=== PATIENT | female | born 1970 | race Caucasian/White ===

== ENCOUNTER 2022-06-01 12:29 | Emergency (ER) | payer OTHER, SELFPAY ==
--- OUTSIDE RECORDS SUMMARY | 2022-06-01 12:35 | XMS REPORT | Continuity of Care Document ---
:1970 Author Organization [facility] t Address [address] [place] [address] Care Team Providers Name Role Phone Tarik Awad Primary Care Physician ANY DUFFY Attending Clinician Unavailable Any Duffy MD Attending Clinician Doctor Unassigned, Marcellus Attending Clinician Unavailable Only, Adc Test Attending Clinician Unavailable Denise Werner Attending Clinician ZEYNEP BARRAZA Attending Clinician Unavailable Zeynep Barraza DO Attending Clinician YOLI PACHECO Attending Clinician Unavailable Yoli Anderson Attending Clinician ANY DUFFY Admitting Clinician Unavailable Any Duffy MD Admitting Clinician YOLI PACHECO Admitting Clinician Unavailable Payers Payer Name Policy Type Policy Number Effective Date Expiration Date [facility] [id number] 2016 CHOICE MEDICAID 00:00:00 Problems Condition Condition Condition Status Onset Resolution Last Treating Co mments Source Name Details Category Date Date Treatment Clinician Date Biliary Biliary Disease Active Overview: Univ ers colic colic 2-03 Formattin ity of 00:00: g of this [place] 00 note Medical might be Branch different from the original. Added automatic ally from request for surgery [id number] Urge Urge Disease Active Univers incontinen incontinen 712 it y of ce ce 00:00: [place] 00 Medical Branch Obesity, Obesity, Disease Active Unive rs unspecifie unspecifie 712 it y of d d 00:00: [place] 00 Medical Branch Chronic Chronic Disease Active Univers bilateral bilateral 712 ity of low back low back 00:00: [place] pain pain 00 Medical without without Branch sciatica sciatica Pain Pain Disease Active Univers pelvic pelvic 7-05 ity of 00:00: [place] [facility] Hot Hot Disease Active Univers flashes flashes 7-05 ity of 00:00: [place] [facility] Pelvic Pelvic Disease Active Univers pressure pressure 7-05 it[place] of in female [place] Uterovagin Uterovagin Disease Active U adaners al al 7-05 ity of prolapse, prolapse, 00:[place] incomplete incomplete [place] d[place] Branch 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 7-05 it y of ity ity 00:00: [place] 00 Medical Branch Constipati Constipati Disease Active U tiffany on, on, 7-05 ity of unspecifie unspecifie [place] Medical constipati constipati Br anch on type on type Sore Sore Disease Active Univers throat throat 8-04 ity of 00:00: [place] [facility] Dysuria Dysuria Disease Active Univers 8-04 ity of 00:00: [place] [facility] Tonsilliti Tonsilliti Disease Active U adaners s with s with 8-04 ity of exudate exudate 00:00: [place] 00 Medical Branch Status Status Disease Active Univers post post 727 ity of tympanopla tympanopla 00:[place] 00 [place] [facility] Allergies, Adverse Reactions, Alerts Allergy Allergy Status Severity Reaction(s) Onset Inactive Treating Comm ents Source Name Type Date Date Clinician Penicill Propensi Active ins - ty to 6-21 CLASS adverse 00:00: reaction 00 to drug Penicill Propensi Active ins ty to 5-18 adverse 00:00: reaction 00 to drug Penicill Propensi Active Rash Univer s in G ty to 07-23 ity of adverse 00:00: [place] reaction 00 Medical s Branch PENICILL DRUG Active Rash Univers IN G INGREDI 07-23 ity of 00:00: [place] 00 Medical Branch Social History Social Habit Start Date Stop Date Quantity Comments Source Alcohol intake 2021-07-22 2021-07-22 0 /d University of 00:00:00 00:00:00 [facility] Tobacco use and 2021-05-31 2021-05-31 Never used Universit y of exposure 00:00:00 00:00:00 [facility] Tobacco Comment 2021-05-31 2021-05-31 Occasional Huka Univ ersity of 00:00:00 00:00:00 [facility] Sex [birth year] At [birth year] Universit y of 00:00:00 00:00:00 [facility] Smoking Status Start Date Stop Date Source Smoker, current status 2021-05-31 00:00:00 [facility] Medications Ordered Filled Start Stop Current Ordering Indication Dosage Frequency Signature Comments Components Source Medication Medication Date Date Medication? Clinician (SIG) Name Name Dose No Unknown 7-17 00:00: 00 cholecalcif No 1(50,00 gina 7-16 0 unit) (vitamin 00:00: D3) 1,250 00 mcg (50,000 unit) tablet 1 TAB EVERY No 4 8 HOURS 7-16 NEEDED FOR 00:00: NAUSEA 00 Dose 2021-0 No Unknown 7-16 00:00: 00 Dose 2021-0 No Unknown 7-16 00:00: 00 Dose 2021-0 No Unknown 7-16 00:00: 00 TAKE 1 2021-0 No 20 TABLET 7-14 EVERY 6 00:00: HOURS 00 NEEDED. Dose 2021-0 No Unknown 7-14 00:00: 00 1 TAB EVERY 0 No 4 8 HOURS 7-07 NEEDED FOR 00:00: NAUSEA 00 Dose 2021-0 No Unknown 6-22 00:00: 00 Dose 2021-0 No Unknown 6-22 00:00: 00 Dose 2021-0 No Unknown 6-21 00:00: 00 Dose 2021-0 No Unknown 6 00:00: 00 Dose 2022-0 No Unknown 6 00:00: 00 Dose 2022-0 No Unknown 6 00:00: 00 Dose 2022-0 No Unknown 6 00:00: 00 Dose 2022-0 No Unknown 6 00:00: 00 Dose 2022-0 No Unknown 6 00:00: 00 metFORMIN 2022-0 Yes 500mg Take 500 Uni vers 500 mg 2-10 mg by ity of tablet 08:16: mouth [place] 13 daily. Medical Branch metFORMIN 2022-0 Yes 500mg Take 500 Uni vers 500 mg 2-10 mg by ity of tablet 08:16: mouth [place] 13 daily. Medical Branch metFORMIN 2-0 Yes 500mg Take 500 Uni vers 500 mg 2-10 mg by ity of tablet 08:16: mouth [place] 13 daily. Medical Branch metFORMIN 2021-0 Yes 500mg Take 500 Uni vers 500 mg 2-10 mg by ity of tablet 08:16: mouth [place] 13 daily. Medical Branch ferrous 2-0 Yes 325mg Take 325 Unive rs sulfate 325 2-09 mg by ity of mg (65 mg 14:29: mouth [place] iron) 56 daily Medical tablet before a Branch meal. ferrous 2022-0 Yes 325mg Take 325 Unive rs sulfate 325 2-09 mg by ity of mg (65 mg 14:29: mouth [place] iron) 56 daily Medical tablet before a Branch meal. ferrous 202-0 Yes 325mg Take 325 Unive rs sulfate 325 2-09 mg by ity of mg (65 mg 14:29: mouth [place] iron) 56 daily Medical tablet before a Branch meal. ferrous 2022-0 Yes 325mg Take 325 Unive rs sulfate 325 2-09 mg by ity of mg (65 mg 14:29: mouth [place] iron) 56 daily Medical tablet before a Branch meal. ketorolac 2022-0 Yes [id number] 10mg Take 1 Un af[place] 10 mg 1-31 tablet by ity of tablet 00:00: mouth [place] 00 every 6 Medical (six) Branch hours as needed for Pain (scale 1-3). ketorolac 2022-0 Yes [id number] 10mg Take 1 Un [place] 10 mg 1-31 tablet by ity of tablet 00:00: mouth [place] 00 every 6 Medical (six) Branch hours as needed for Pain (scale 1-3). ketorolac 2022-0 Yes [id number] 10mg Take 1 Un [place] 10 mg 1-31 tablet by ity of tablet 00:00: mouth [place] 00 every 6 Medical (six) Branch hours as needed for Pain (scale 1-3). ketorolac 2022-0 Yes [id number] 10mg Take 1 Un [place] 10 mg 1-31 tablet by ity of tablet 00:00: mouth [place] 00 every 6 Medical (six) Branch hours as needed for Pain (scale 1-3). ondansetron 2022-0 Yes [id number] 4mg Take 1 Univers 4 mg 1-25 tablet by ity of disintegrat 00:00: mouth [place] ing tablet 00 every 8 Medica l (eight) Branch hours as needed for Nausea and Vomiting (N/V). dicyclomine 2022-0 Yes [id number] 20mg Take 1 Univers 20 mg 1-25 tablet by ity of tablet 00:00: mouth 4 [place] 00 (four) Medical times Branch daily as needed for Abdominal pain. ondansetron 2022-0 Yes [id number] 4mg Take 1 Univers 4 mg 1-25 tablet by ity of disintegrat 00:00: mouth [place] ing tablet 00 every 8 Medica l (eight) Branch hours as needed for Nausea and Vomiting (N/V). dicyclomine 2022-0 Yes [id number] 20mg Take 1 Univers 20 mg 1-25 tablet by ity of tablet 00:00: mouth 4 [place] 00 (four) Medical times Branch daily as needed for Abdominal pain. ondansetron 2022-0 Yes [id number] 4mg Take 1 Univers 4 mg 1-25 tablet by ity of disintegrat 00:00: mouth [place] ing tablet 00 every 8 Medica l (eight) Branch hours as needed for Nausea and Vomiting (N/V). dicyclomine 2022-0 Yes [id number] 20mg Take 1 Univers 20 mg 1-25 tablet by ity of tablet 00:00: mouth 4 [place] 00 (four) Medical times Branch daily as needed for Abdominal pain. ondansetron 2022-0 Yes [id number] 4mg Take 1 Univers 4 mg 1-25 tablet by ity of disintegrat 00:00: mouth [place] ing tablet 00 every 8 Medica l (eight) Branch hours as needed for Nausea and Vomiting (N/V). dicyclomine 2021-0 Yes [id number] 20mg Take 1 Univers 20 mg 1-25 tablet by ity of tablet 00:00: mouth 4 [place] 00 (four) Medical times Branch daily as needed for Abdominal pain. cyclobenzap 2021-0 No 1mg rine 10 mg 1-07 tablet 00:00: 00 cyclobenzap 1 No 1mg rine 10 mg 1-05 tablet 00:00: 00 Claritin 10 2020-04 No 1mg mg tablet 04-26 00:00: 00 fluticasone 2020-04 No 2mcg/ac propionate 1-03 tuation 50 00:00: mcg/actuati 00 on nasal spray,suspe nsion Tessalon 2020-04 No 1mg Perles 100 1-03 mg capsule 00:00: 00 Tessalon 2020-0 No 1mg Perles 100 7-12 mg capsule 00:00: 00 rosuvastati 2020-0 No 1mg n 5 mg 7-08 tablet 00:00: 00 metformin 2020-0 No 1mg 500 mg 7-08 tablet 00:00: 00 ibuprofen 2020-0 No 1mg 800 mg 7-08 tablet 00:00: 00 cyclobenzap 2020-0 No 1mg rine 10 mg 7-08 tablet 00:00: 00 gabapentin 2020-0 No 1mg 300 mg 7-08 capsule 00:00: 00 metformin 2020-0 No 1mg 500 mg 3-01 tablet 00:00: 00 atorvastati 2020-0 No 1mg n 40 mg 3-01 tablet 00:00: 00 ferrous 2020-0 No 1(65 mg sulfate 325 3-01 iron) mg (65 mg 00:00: iron) 00 tablet gabapentin 2020-0 No 1mg 300 mg 3-01 capsule 00:00: 00 metformin 2020-0 No 1mg 500 mg 1-13 tablet 00:00: 00 metformin 2019-1 No 1mg 500 mg 0-17 tablet 00:00: 00 Voltaren 1 2019-1 No 2% % topical 0-15 gel 00:00: 00 Voltaren 1 2019-1 No 1% % topical 0-15 gel 00:00: 00 atorvastati 2019-1 No 1mg n 40 mg 0-15 tablet 00:00: 00 gabapentin 2020-0 No 1mg 300 mg 3-03 capsule 00:00: 00 Tamiflu 75 2019-0 No 1mg mg capsule 2-09 00:00: 00 amoxicillin 2020-0 No 1mg 500 mg 1-27 tablet 00:00: 00 azithromyci 2020-0 No 1mg n 250 mg 1-27 tablet 00:00: 00 fluticasone 2019-1 No 2mcg/ac propionate 2-16 tuation 50 00:00: mcg/actuati 00 on nasal spray,suspe nsion ProAir HFA 2019-1 No 2mcg/ac 90 2-16 tuation mcg/actuati 00:00: on aerosol 00 inhaler oxybutynin 2019-1 No 1mg chloride ER 2-16 5 mg 00:00: tablet,exte 00 nded release 24 hr meloxicam 2019-1 No 1mg 15 mg 2-16 tablet 00:00: 00 atorvastati 2019-1 No 1mg n 40 mg 2-16 tablet 00:00: 00 gabapentin 2019-1 No 1mg 300 mg 2-16 capsule 00:00: 00 fluticasone 2019-1 No 2mcg/ac propionate 0-25 tuation 50 00:00: mcg/actuati 00 on nasal spray,suspe nsion ProAir HFA 2019-1 No 2mcg/ac 90 0-25 tuation mcg/actuati 00:00: on aerosol 00 inhaler prednisone 2019-1 No 2mg 20 mg 0-25 tablet 00:00: 00 cetirizine 2019-1 No 1mg 5 0-25 mg-pseudoep 00:00: hedrine ER 00 120 mg tablet,exte nded release,12h r azithromyci 2019-1 No 1mg n 250 mg 0-25 tablet 00:00: 00 benzonatate 2019-1 No 1mg 100 mg 0-25 capsule 00:00: 00 oxybutynin 2019-0 No 1mg chloride ER 8-12 5 mg 00:00: tablet,exte 00 nded release 24 hr ibuprofen 2019-0 No 1mg 600 mg 8-12 tablet 00:00: 00 gabapentin 2019-0 No 1mg 300 mg 8-12 capsule 00:00: 00 gabapentin 2019-0 No 1mg 300 mg 8-12 capsule 00:00: 00 solifenacin 2019-0 No 1mg 5 mg tablet 6-13 00:00: 00 atorvastati 2019-0 No 1mg n 40 mg 6-13 tablet 00:00: 00 solifenacin 2016- Yes [id number] 5mg Take 1 Univers (VESICARE) 1-03 tablet by ity of 5 mg tablet 00:00: mouth [place] 00 daily. Medical Branch solifenacin 2016-04 Yes [id number] 5mg Take 1 Univers (VESICARE) 1-03 tablet by ity of 5 mg tablet 00:00: mouth [place] 00 daily. Medical Branch solifenacin 2016-04 Yes [id number] 5mg Take 1 Univers (VESICARE) 1-03 tablet by ity of 5 mg tablet 00:00: mouth [place] 00 daily. Medical Branch solifenacin 2016-04 Yes [id number] 5mg Take 1 Univers (VESICARE) 1-03 tablet by ity of 5 mg tablet 00:00: mouth [place] 00 daily. Medical Branch fexofenadin Yes [id number] 180mg Take 1 Univers e (JORJE) 7-06 tablet by ity of 180 mg 00:00: mouth [place] tablet 00 daily. Medical Branch ciprofloxac Yes 4[drp] Place 4 U nivers in-dexameth 7-06 Drops in ity of asone 00:00: right ear [place] (CIPRODEX) 00 2 (two) Medica l 0.3-0.1 % times Branch otic drops daily. hydrocortis Yes Apply to Un afia one 1 % 7-06 affected ity of cream 00:00: area(s) [place] 00 daily. Medical Branch fexofenadin Yes [id number] 180mg Take 1 Univers e (JORJE) 7-06 tablet by ity of 180 mg 00:00: mouth [place] tablet 00 daily. Medical Branch ciprofloxac Yes 4[drp] Place 4 U nivers in-dexameth 7-06 Drops in ity of asone 00:00: right ear [place] (CIPRODEX) 00 2 (two) Medica l 0.3-0.1 % times Branch otic drops daily. hydrocortis 2017 Yes Apply to Un [place] one 1 % 7-06 affected ity of cream 00:00: area(s) [place] 00 daily. Medical Branch fexofenadin 2017-0 Yes [id number] 180mg Take 1 Univers e (JORJE) 7-06 tablet by ity of 180 mg 00:00: mouth [place] tablet 00 daily. Medical Branch ciprofloxac 2017-0 Yes 4[drp] Place 4 U nivers in-dexameth 7-06 Drops in ity of asone 00:00: right ear [place] (CIPRODEX) 00 2 (two) Medica l 0.3-0.1 % times Branch otic drops daily. hydrocortis 2017-0 Yes Apply to Un [place] one 1 % 7-06 affected ity of cream 00:00: area(s) [place] 00 daily. Medical Branch fexofenadin 2017- Yes [id number] 180mg Take 1 Univers e (JORJE) 7-06 tablet by ity of 180 mg 00:00: mouth [place] tablet 00 daily. Medical Branch ciprofloxac 2017-0 Yes 4[drp] Place 4 U nivers in-dexameth 7-06 Drops in ity of asone 00:00: right ear [place] (CIPRODEX) 00 2 (two) Medica l 0.3-0.1 % times Branch otic drops daily. hydrocortis 2017-0 Yes Apply to Un af[place] one 1 % 7-06 affected ity of cream 00:00: area(s) [place] 00 daily. Medical Branch ibuprofen 2017-0 Yes 800mg Take 1 Unive rs 800 mg 6-12 tablet by ity of tablet 00:00: mouth [place] 00 every 8 Medical (eight) Branch hours as needed for Pain (scale 4-6). ibuprofen 2017-0 Yes 800mg Take 1 Unive rs 800 mg 6-12 tablet by ity of tablet 00:00: mouth [place] 00 every 8 Medical (eight) Branch hours as needed for Pain (scale 4-6). ibuprofen 2017-0 Yes 800mg Take 1 Unive rs 800 mg 6-12 tablet by ity of tablet 00:00: mouth [place] 00 every 8 Medical (eight) Branch hours as needed for Pain (scale 4-6). ibuprofen 2017-0 Yes 800mg Take 1 Unive rs 800 mg 6-12 tablet by ity of tablet 00:00: mouth [place] 00 every 8 Medical (eight) Branch hours as needed for Pain (scale 4-6). simvastatin 2017-0 Yes Univer s 20 mg 5-31 ity of tablet 00:00: [place] 00 Medical Branch simvastatin 2017-0 Yes Univer s 20 mg 5-31 ity of tablet 00:00: [place] [facility] simvastatin 2017-0 Yes Univer s 20 mg 5-31 ity of tablet 00:00: [place] [facility] simvastatin 2017-0 Yes Univer s 20 mg 5-31 ity of tablet 00:00: [address] Branch azelastine 2015-04 Yes 2{spray Use 2 Uni vers (ASTELIN) 2-20 } Sprays in ity o f 137 mcg 00:00: each [place] (0.1 %) 00 nostril 2 Medical nasal spray (two) Branch times daily. Use in each nostril as directed azelastine 2015-04 Yes 2{spray Use 2 Uni vers (ASTELIN) 2-20 } Sprays in ity o f 137 mcg 00:00: each [place] (0.1 %) 00 nostril 2 Medical nasal spray (two) Branch times daily. Use in each nostril as directed azelastine 2015-04 Yes 2{spray Use 2 Uni vers (ASTELIN) 2-20 } Sprays in ity o f 137 mcg 00:00: each [place] (0.1 %) 00 nostril 2 Medical nasal spray (two) Branch times daily. Use in each nostril as directed azelastine 2015-04 Yes 2{spray Use 2 Uni vers (ASTELIN) 2-20 } Sprays in ity o f 137 mcg 00:00: each [place] (0.1 %) 00 nostril 2 Medical nasal spray (two) Branch times daily. Use in each nostril as directed fluticasone 2015-04 Yes [id number] 2{spray Use 2 Univers 50 1-03 } Sprays in ity of mcg/actuati 00:00: each [place] on nasal 00 nostril Medical spray daily. Branch fluticasone 2015-04 Yes [id number] 2{spray Use 2 Univers 50 1-03 } Sprays in ity of mcg/actuati 00:00: each [place] on nasal 00 nostril Medical spray daily. Branch fluticasone 2015-04 Yes [id number] 2{spray Use 2 Univers 50 1-03 } Sprays in ity of mcg/actuati 00:00: each [place] on nasal 00 nostril Medical spray daily. [place] fluticasone 2015-04 Yes [id number] 2{spray Use 2 [facility] 50 1-03 } Sprays in ity of mcg/actuati 00:00: each [place] on nasal 00 nostril Medical spray daily. [place] Diflucan No 1mg 150 mg 5-24 tablet 00:00: 00 clindamycin 0 No 1mg HCl 300 mg 5-23 capsule 00:00: 00 nystatin 0 No 1unit/g 100,000 5-18 rocco unit/gram 00:00: topical 00 powder oxybutynin 0 No 1mg chloride ER 5-18 5 mg 00:00: tablet,exte 00 nded release 24 hr Flagyl 500 No 1mg mg tablet 18 00:00: 00 Cipro 500 No 1mg mg tablet 518 00:00: 00 Immunizations Ordered Filled Immunization Date Status Comments [facility] e Immunization Name Name SARS-COV-2 COVID-19 2020-08-22 Completed Unive rsity of PFIZER VACCINE 00:00:00 [facility] SARS-COV-2 COVID-19 2020-08-22 Completed Unive rsity of PFIZER VACCINE 00:00:00 [facility] SARS-COV-2 COVID-19 2020-08-22 Completed Unive rsity of PFIZER VACCINE 00:00:00 [facility] SARS-COV-2 COVID-19 2020-08-22 Completed Unive rsity of PFIZER VACCINE 00:00:00 [facility] SARS-COV-2 COVID-19 2020-08-01 Completed Unive rsity of PFIZER VACCINE 00:00:00 [facility] SARS-COV-2 COVID-19 2020-08-01 Completed Unive rsity of PFIZER VACCINE 00:00:00 [facility] SARS-COV-2 COVID-19 2020-08-01 Completed Unive rsity of PFIZER VACCINE 00:00:00 [facility] SARS-COV-2 COVID-19 2020-08-01 Completed Unive rsity of PFIZER VACCINE 00:00:00 [facility] Vital Signs Vital Name Observation Time Observation Value Comments Source Systolic blood 2021-07-22 20:44:00 136 mm[Hg] Univer sity of pressure [facility] Diastolic blood 2021-07-22 20:44:00 81 mm[Hg] Unive rsity of pressure [facility] Heart rate 2021-07-22 20:44:00 84 /min Universi ty of [facility] Body temperature 2021-07-22 20:44:00 36.61 [place] Univ ersity of [facility] Respiratory rate 2021-07-22 20:44:00 18 /min [facility] Body height 2021-07-22 20:44:00 162.6 cm Universi ty of [facility] Body weight 2021-07-22 20:44:00 93.895 kg Universi ty [facility] BMI 2021-07-22 20:44:00 35.53 kg/m2 [facility] Oxygen saturation in 2021-07-22 20:44:00 99 /min [facility] blood by [facility] Pulse oximetry Branch BP Systolic 2021-11-04 10:25:00 134 mm[Hg] BP Diastolic 2021-11-04 10:25:00 83 mm[Hg] Weight Measured 2021-11-04 10:25:00 207.80 pounds Height Measured 2021-11-04 10:25:00 62.00 inches Body Temperature 2021-11-04 10:25:00 98.40 degrees Heart Rate 2021-11-04 10:25:00 78.00 /min Respiratory Rate 2021-11-04 10:25:00 BP Systolic 2021-05-12 17:40:00 140 mm[Hg] BP Diastolic 2021-05-12 17:40:00 80 mm[Hg] Weight Measured 2021-05-12 17:40:00 214.40 pounds Height Measured 2021-05-12 17:40:00 62.00 inches Body Temperature 2021-05-12 17:40:00 97.40 degrees Heart Rate 2021-05-12 17:40:00 83.00 /min Respiratory Rate 2021-05-12 17:40:00 16.00 /min BP Systolic 2021-05-12 17:04:00 134 mm[Hg] BP Diastolic 2021-05-12 17:04:00 80 mm[Hg] Weight Measured 2021-05-12 17:04:00 249.00 pounds Height Measured 2021-05-12 17:04:00 62.00 inches Body Temperature 2021-05-12 17:04:00 97.50 degrees Heart Rate 2021-05-12 17:04:00 70.00 /min Respiratory Rate 2021-05-12 17:04:00 BP Systolic 2021-02-08 17:34:00 146 mm[Hg] BP Diastolic 2021-02-08 17:34:00 84 mm[Hg] Weight Measured 2021-02-08 17:34:00 216.80 pounds Height Measured 2021-02-08 17:34:00 62.00 inches Body Temperature 2021-02-08 17:34:00 98.30 degrees Heart Rate 2021-02-08 17:34:00 83.00 /min Respiratory Rate 2021-02-08 17:34:00 17.00 /min BP Systolic 2020-10-29 16:06:00 170 mm[Hg] BP Diastolic 2020-10-29 16:06:00 81 mm[Hg] Weight Measured 2020-10-29 16:06:00 210.80 pounds Height Measured 2020-10-29 16:06:00 62.00 inches Body Temperature 2020-10-29 16:06:00 98.30 degrees Heart Rate 2020-10-29 16:06:00 77.00 /min Respiratory Rate 2020-10-29 16:06:00 21.00 /min BP Systolic 2020-06-22 09:57:00 155 mm[Hg] BP Diastolic 2020-06-22 09:57:00 87 mm[Hg] Weight Measured 2020-06-22 09:57:00 211.00 pounds Height Measured 2020-06-22 09:57:00 62.00 inches Body Temperature 2020-06-22 09:57:00 97.60 degrees Heart Rate 2020-06-22 09:57:00 75.00 /min Respiratory Rate 2020-06-22 09:57:00 16.00 /min BP Systolic 2020-02-06 15:36:00 148 mm[Hg] BP Diastolic 2020-02-06 15:36:00 85 mm[Hg] Weight Measured 2020-02-06 15:36:00 214.20 pounds Height Measured 2020-02-06 15:36:00 62.00 inches Body Temperature 2020-02-06 15:36:00 97.10 degrees Heart Rate 2020-02-06 15:36:00 82.00 /min Respiratory Rate 2020-02-06 15:36:00 18.00 /min BP Systolic 2019-05-31 15:34:00 129 mm[Hg] BP Diastolic 2019-05-31 15:34:00 73 mm[Hg] Weight Measured 2019-05-31 15:34:00 210.20 pounds Height Measured 2019-05-31 15:34:00 62.00 inches Body Temperature 2019-05-31 15:34:00 98.10 degrees Heart Rate 2019-05-31 15:34:00 73.00 /min Respiratory Rate 2019-05-31 15:34:00 15.00 /min BP Systolic 2019-05-20 12:10:00 128 mm[Hg] BP Diastolic 2019-05-20 12:10:00 74 mm[Hg] Weight Measured 2019-05-20 12:10:00 208.60 pounds Height Measured 2019-05-20 12:10:00 62.00 inches Body Temperature 2019-05-20 12:10:00 99.40 degrees Heart Rate 2019-05-20 12:10:00 86.00 /min Respiratory Rate 2019-05-20 12:10:00 BP Systolic 2019-04-08 14:57:00 147 mm[Hg] BP Diastolic 2019-04-08 14:57:00 82 mm[Hg] Weight Measured 2019-04-08 14:57:00 210.80 pounds Height Measured 2019-04-08 14:57:00 62.00 inches Body Temperature 2019-04-08 14:57:00 98.40 degrees Heart Rate 2019-04-08 14:57:00 77.00 /min Respiratory Rate 2019-04-08 14:57:00 Procedures Procedure Date / Time Performed Performing Clinician [facility] e PHYSICIAN ORDERS 2021-08-11 05:01:00 Doctor Unassigned, No [facility] Ekg 2019-05-31 00:00:00 Plan of Care Planned Activity Planned Date Details Comments Source Goal Plan of Care Note [code = 54299-0] Goal Plan of Care Note [code = 79523-3] Goal Plan of Care Note [code = 15317-0] Goal Plan of Care Note [code = 36879-2] Goal Plan of Care Note [code = 04093-8] Goal Plan of Care Note [code = 76832-8] Goal Plan of Care Note [code = 94137-2] Goal Plan of Care Note [code = 96302-7] Goal Plan of Care Note [code = 68247-4] Goal Plan of Care Note [code = 38419-0] Goal Plan of Care Note [code = 09848-0] Goal Plan of Care Note [code = 07506-7] Goal Plan of Care Note [code = 07789-8] Goal Plan of Care Note [code = 61102-5] Goal Plan of Care Note [code = 51853-5] Goal Plan of Care Note [code = 04864-2] Goal Plan of Care Note [code = 64217-1] Goal Plan of Care Note [code = 23734-9] Goal Plan of Care Note [code = 56867-2] Goal Plan of Care Note [code = 52621-4] Goal Plan of Care Note [code = 00461-2] Goal Plan of Care Note [code = 85127-2] Goal Plan of Care Note [code = 05279-5] Goal Plan of Care Note [code = 14525-9] Goal Plan of Care Note [code = 45600-5] Goal Plan of Care Note [code = 06740-4] Goal Plan of Care Note [code = 92383-8] Goal Plan of Care Note [code = 73839-7] Goal Plan of Care Note [code = 64236-0] Goal Plan of Care Note [code = 84014-2] Goal Plan of Care Note [code = 07855-9] Goal Plan of Care Note [code = 14010-5] Goal Plan of Care Note [code = 27833-1] Encounters Start End Encounter Admission Attending Care Care Encounter Source Date/Time Date/Time Type Type Clinicians Facility Department ID 2022-03-24 2022-03-24 Outpatient SIL SFA [id number] Vasiliy 13:24:47 13:24:47 12[address] José Miguel 2021-11-04 2021-11-04 Outpatient [id number] 00:00:00 00:00:00 Visit [id number] 2021-08-12 2021-08-12 [id number] Univers 15:00:00 15:00:00 ANY delacruz [facility] 2021-08-11 2021-08-11 Telephone [facility] [id number] Univers 00:00:00 00:00:00 Any GRAY [id number] i ty of [place] [id number] [place] PROF[place] [id number] Pr dical [address] 2021-08-11 2021-08-11 Orders Doctor YONI [id number] Univers 00:00:00 00:00:00 Only Unassigned, CASIE [id number] [facility] [id number] Jacky as [id number] [address] 2021-07-22 2021-07-22 [facility] [id number] Univers 15:45:00 16:35:05 ANY delacruz [facility] 2021-07-22 2021-07-22 Office [facility] [id number] Univers 15:45:00 16:35:05 Visit Any GRAY [id number] i ty [facility] [id number] [phone] Pr dical NAL [address] [place] [address] 2021-06-24 2021-06-24 [facility] [id number] Univers 11:15:00 11:39:42 ANY delacruz [facility] 2021-06-24 2021-06-24 [facility] [id number] Univers 11:15:00 11:39:42 Visit Any GRAY [id number] i [id number] [phone] Pr dical NAL [address] [facility] 2021-06-24 2021-06-24 [facility] [id number] Univers 11:15:00 11:39:42 ANY mikel [facility] 2021-06-03 2021-06-03 Outpatient R [facility] [id number] Univers 08:00:00 10:36:19 ANY [facility] 2021-06-03 2021-06-03 Office [facility] [id number] Univers 08:00:00 10:36:19 Visit Any GRAY [id number] i [id number] [phone] [address] 2021-06-02 2021-06-02 [facility] [place] [id number] Univers 08:27:00 14:29:00 ANY delacruz [facility] 2021-06-02 2021-06-02 [facility] [id number] Univers 08:27:00 14:29:00 Encounter Any MARINA 350.1.13.10 ity [facility] [id number] [phone] [facility] [address] 2021-06-02 2021-06-02 [facility] [place] [id number] Univers 08:27:00 14:29:00 ANY delacruz [facility] 2021-06-02 2021-06-02 Surgery [facility] [id number] Univers 10:00:00 12:35:00 Any MARINA [id number] i [id number] [phone] [facility] [address] 2021-06-01 2021-06-01 Laboratory Only, Adc Test [facility] 1.2.840. [id number] Univers 13:15:00 13:30:00 Only Any Duffy MAR[place] [id number] ity of [place] [id number] [phone] [address] 2021-06-01 2021-06-01 Outpatient R CLIVE [facility] [id number] Univers 13:15:00 13:15:00 ANY delacruz [facility] 2021-05-31 2021-05-31 Outpatient R CLIVE [facility] [id number] Univers 12:00:00 12:00:00 ANY delacruz [facility] 2021-05-27 2021-05-27 Outpatient R CLIVE [facility] [id number] Univers 15:00:00 15:46:06 ANY mikel [facility] 2021-05-27 2021-05-27 [facility] [id number] Univers 15:00:00 15:46:06 Visit Any GRAY 350.1.13.10 i ty [place] [phone] Pr dical NAL [address] [place] [address] 2021-05-27 2021-05-27 Prep For Ariella [facility] [id number] Univers 00:00:00 00:00:00 Surgery Denise Green MAR[place] [id number] it[id number] [phone] Pr dical NAL [address] [place] [address] 2021-05-24 2021-05-24 Emergency X MADI [facility] ERT [id number] Univers 07:29:00 09:00:00 ZEYNEP delacruz [facility] 2021-05-24 2021-05-24 [facility] [id number] Univers 07:29:00 09:00:00 Zeynep GRAY 350.1.13.10 [id number] [phone] [facility] [address] 2021-05-24 2021-05-24 Orders Doctor YONI [id number] Univers 00:00:00 00:00:00 Only Unassigned, CASIE 350.1.13.10 ity of [place] [facility] [id number] Jacky as [phone] [facility] [address] 2021-05-18 2021-05-18 Emergency X [facility], [facility] ERT [id number] Univers 14:31:00 17:35:00 YOLI ity [facility] 2021-05-18 2021-05-18 Emergency [facility] [id number] Univers 14:31:00 17:35:00 Yoli GRAY 350.1.13.10 i ty [facility] 4.2.7.2.686 [facility] [phone] [facility] [address] 2021-05-18 2021-05-18 Orders Doctor YONI [id number] Univers 00:00:00 00:00:00 Only Unassigned, CASIE 350.1.13.10 ity of [place] [facility] [id number] Jacky as [phone] [facility] [address] 2020-08-22 2020-08-22 Outpatient [facility] [id number] Univers 15:25:00 15:25:00 [facility] 2020-08-01 2020-08-01 Outpatient [facility] [id number] Univers 15:05:00 15:05:00 [facility] Results Test Description Test Time Test Comments Results Result Comments Source H. PYLORI (BREATH) 2022-01-08 11:54:17 Test Item Value Reference Range Interpretation Comme nts H. PYLORI (BREATH) (test code POSITIVE NEGATIVE A UNLESS OTHERWISE INDICATED, ALL = 55473) TESTING PERFORM ED ATCLINICAL PATHOLOGY LABOR [facility] [address] [place] [id number] SUPERVISOR PARTIAL DENTURE DEPARTMENT: TAY CARRILLO M.D. CLIA NUMBER [id number] CAP ACCREDITATION N O. [id number] CBC W/AUTO DIFF WITH [id number] 06:55:57 Test Item Value Reference Range Interpretation Comments WBC (test code = 7.0 K/UL 3.5-11.0 1001) RBC (test code = 4.65 M/UL 3.80-5.40 1002) HEMOGLOBIN (test 8.5 G/DL 11.5-15.5 L code = 1003) HEMATOCRIT (test 29.1 % 34.0-45.0 L code = 1004) MCV (test code = 62.6 fL 80.0-99.0 L 1005) MCH (test code = 18.3 PG 25.0-33.0 L 1006) MCHC (test code = 29.2 G/DL 31.0-36.0 L 1007) RDW (test code = 17.7 % 11.5-15.0 H 1038) NEUTROPHILS (test 57.6 % AUTOMATED code = 1008) DIFFERENTIAL CONFIRMED WITH MANUAL SLIDE REVIEW. LYMPHOCYTES (test 30.0 % code = 1010) MONOCYTES (test code 7.8 % = 1011) EOSINOPHILS (test 3.6 % code = 1012) BASOPHILS (test code 0.7 % = 1013) IMMATURE 0.3 % GRANULOCYTES (test code = 1036) NUCLEATED RBCS (test 0.0 /100 See_Comment [Autom ated message] code = 1065) WBC'S The system [employer] generated this result transmitted ref erence range: 0.0. The reference range was not used to int erpret this result as normal/abnormal . PLATELET COUNT (test 361 K/UL 130-400 code = 1015) ABSOLUTE NEUTROPHILS 4.04 K/UL 1.50-7.50 (test code = 1066) ABSOLUTE LYMPHOCYTES 2.10 K/UL 1.00-4.00 (test code = 1067) ABSOLUTE MONOCYTES 0.55 K/UL 0.20-1.00 (test code = 1068) ABSOLUTE EOSINOPHILS 0.25 K/UL 0.00-0.50 (test code = 1040) ABSOLUTE BASOPHILS 0.05 K/UL 0.00-0.20 (test code = 1069) ABS IMMATURE 0.02 K/UL 0.00-0.10 GRANULOCYTES (test code = 1020) ABS NUCLEATED RBCS 0.00 K/UL 0.00-0.11 (test code = 19893) COMMENTS (test code (NOTE) SLIGHT ANISOCYTOSIS = 1016) FEW ELLIPTOCYTE S MODERATE HYPOCHROMASIA M ARKED MICROCYTOSIS SL IGHT POLYCHROMASIA F EW TEAR DROP CELLS PLATELETS APPEA R NORMAL VITAMIN D, 25 [id number] 04:18:12 Test Item Value Reference Range Interpretation Comments VITAMIN D, 25 OH 15 NG/ML SEE BELOW L NOTE: 25-H YDROXYVITAMIN D (test code = 4958) ASSAY INC LUDES 25-HYDROXYVITAM IN D2 AND D3. METHODOLOGY IS CHEMILUMINESCEN T IMMUNOASSAY. INTERPRETIVE RA NGES PEDIATRIC (<17 YEARS) . . . . . . . . . . . NG/ML 20-100ADULT: IN SUFFICIENT . . . . . . . . . . . . . . NG/ML <20 SUBOP TIMAL . . . . . . . . . . . . . . . NG/ML 20-29 OPT IMAL . . . . . . . . . . . . . . . . . NG/ML 30-100 CBC W/AUTO DIFF WITH PLATELETS [ADDED]2021-11-06 00:00:00 Test Item Value Reference Range Interpretation Comments WBC (test code = 1001) 7.0 K/UL RBC (test code = 1002) 4.65 M/UL HEMOGLOBIN (test code = 1003) 8.5 G/DL HEMATOCRIT (test code = 1004) 29.1 % MCV (test code = 1005) 62.6 fL MCH (test code = 1006) 18.3 PG MCHC (test code = 1007) 29.2 G/DL RDW (test code = 1038) 17.7 % NEUTROPHILS (test code = 1008) 57.6 % LYMPHOCYTES (test code = 1010) 30.0 % MONOCYTES (test code = 1011) 7.8 % EOSINOPHILS (test code = 1012) 3.6 % BASOPHILS (test code = 1013) 0.7 % IMMATURE GRANULOCYTES (test 0.3 % code = 1036) NUCLEATED RBCS (test code = 0.0 /100WBC'S 1065) PLATELET COUNT (test code = 361 K/UL 1015) ABSOLUTE NEUTROPHILS (test code 4.04 K/UL = 1066) ABSOLUTE LYMPHOCYTES (test code 2.10 K/UL = 1067) ABSOLUTE MONOCYTES (test code = 0.55 K/UL 1068) ABSOLUTE EOSINOPHILS (test code 0.25 K/UL = 1040) ABSOLUTE BASOPHILS (test code = 0.05 K/UL 1069) ABS IMMATURE GRANULOCYTES (test 0.02 K/UL code = 1020) ABS NUCLEATED RBCS (test code = 0.00 K/UL 38723) COMMENTS (test code = 1016) (NOTE) CBC W/AUTO DIFF WITH PLATELETS [ADDED]2021-11-06 00:00:00 Test Item Value Reference Range Interpretation Comments WBC (test code = 1001) 7.0 K/UL RBC (test code = 1002) 4.65 M/UL HEMOGLOBIN (test code = 1003) 8.5 G/DL HEMATOCRIT (test code = 1004) 29.1 % MCV (test code = 1005) 62.6 fL MCH (test code = 1006) 18.3 PG MCHC (test code = 1007) 29.2 G/DL RDW (test code = 1038) 17.7 % NEUTROPHILS (test code = 1008) 57.6 % LYMPHOCYTES (test code = 1010) 30.0 % MONOCYTES (test code = 1011) 7.8 % EOSINOPHILS (test code = 1012) 3.6 % BASOPHILS (test code = 1013) 0.7 % IMMATURE GRANULOCYTES (test 0.3 % code = 1036) NUCLEATED RBCS (test code = 0.0 /100WBC'S 1065) PLATELET COUNT (test code = 361 K/UL 1015) ABSOLUTE NEUTROPHILS (test code 4.04 K/UL = 1066) ABSOLUTE LYMPHOCYTES (test code 2.10 K/UL = 1067) ABSOLUTE MONOCYTES (test code = 0.55 K/UL 1068) ABSOLUTE EOSINOPHILS (test code 0.25 K/UL = 1040) ABSOLUTE BASOPHILS (test code = 0.05 K/UL 1069) ABS IMMATURE GRANULOCYTES (test 0.02 K/UL code = 1020) ABS NUCLEATED RBCS (test code = 0.00 K/UL 18035) COMMENTS (test code = 1016) (NOTE) VITAMIN D, 25 OH [ADDED]2021-11-06 00:00:00 Test Item Value Reference Range Interpretation Comments VITAMIN D, 25 OH (test code = 4958) 15 NG/ML H. PYLORI (BREATH)2021-11-05 12:19:58 Test Item Value Reference Range Interpretation Comments H. PYLORI (BREATH) POSITIVE NEGATIVE A UNLESS O THERWISE (test code = 70651) INDICATE D, ALL TESTING PERFORMED [facility] [employer] [address] [facility] [address] [facility] DIRECTOR: TAY CARRILLO M.D. CLIA NUMBER [id number] CAP ACCREDITATION N O. [id number] LIPID [id number] 08:22:33 Test Item Value Reference Range Interpretation Comments CHOLESTEROL (test 242 MG/DL <200 H code = 2210) TRIGLYCERIDES (test 153 MG/DL <150 H code = 2232) HDL CHOLESTEROL (test 56 MG/DL >39 code = 2220) CALC LDL CHOL (test 158 MG/DL <100 H NOTE: C ALCULATED LDL code = 2237) IS BASED ON HALEY-BRAN METHOD WHICHINCLUDES ADJUSTABLE TRIGLYCERIDE:VL DL CHOLESTEROL RAT IO.THIS FACTOR VARIES B Y MEASURED TRIGLY CERIDE AND NON-HDLCHOL ESTEROL CONCENTRATIONS WITH INCREASED CALCU LATED LDL SEENIN HIGH ER TRIGLYCERIDE OR LOWER NON-HDL SPECIME NS. FOR MOREINFORMATION , SEE CLIENT ANNOUNCE MENT AT [email or web address] RISK RATIO LDL/HDL 2.82 RATIO <3.22 (test code = 2238) COMPREHENSIVE METABOLIC [id number] 08:22:33 Test Item Value Reference Range Interpretation Comments GLUCOSE (test code = 107 MG/DL 70-99 H 2216) BUN (test code = 13 MG/DL 6-20 2207) CREATININE (test 0.63 MG/DL 0.60-1.30 code = 2214) eGFR (2020 CKD-EPI) 109 >60 (test code = 47468) ML/MIN/1.73 CALC BUN/CREAT (test 21 RATIO 6-28 code = 2235) SODIUM (test code = 139 MEQ/L 571-752 3393) POTASSIUM (test code 4.7 MEQ/L 3.5-5.4 = 222) CHLORIDE (test code 106 MEQ/L 95-107 = 221) CARBON DIOXIDE (test 20 MEQ/L 19-31 code = 2206) CALCIUM (test code = 9.1 MG/DL 8.5-10.5 2208) PROTEIN, TOTAL (test 7.3 G/DL 6.1-8.3 code = 222) ALBUMIN (test code = 4.3 G/DL 3.5-5.2 2200) CALC GLOBULIN (test 3.0 G/DL 1.9-3.7 code = 2240) CALC A/G RATIO (test 1.4 RATIO 1.0-2.6 code = 2234) BILIRUBIN, TOTAL <0.2 MG/DL See_Comment [Automated message] (test code = 2207) The syste m which generated this result transmit max reference range : <=1.2. The refe rence range was not u sed to interpret th is result as normal/abnormal . ALKALINE PHOSPHATASE 80 U/L 40-125 (test code = 2204) AST (test code = 13 U/L 9-40 2217) ALT (test code = 15 U/L 5-40 2218) VITAMIN [id number] 07:09:12 Test Item Value Reference Range Interpretation Comments VITAMIN B-12 (test code = 2840) 283 PG/ML 200-950 H. PYLORI (BREATH) [ADDED]2021-11-05 00:00:00 Test Item Value Reference Range Interpretation Comments H. PYLORI (BREATH) (test code = POSITIVE 94679) LIPID PANEL [ADDED]2021-11-05 00:00:00 Test Item Value Reference Range Interpretation Comments CHOLESTEROL (test code = 2210) 242 MG/DL TRIGLYCERIDES (test code = 2232) 153 MG/DL HDL CHOLESTEROL (test code = 2220) 56 MG/DL CALC LDL CHOL (test code = 2237) 158 MG/DL RISK RATIO LDL/HDL (test code = 2.82 RATIO 2238) COMPREHENSIVE METABOLIC PANEL [ADDED]2021-11-05 00:00:00 Test Item Value Reference Range Interpretation Comments GLUCOSE (test code = 2217) 107 MG/DL BUN (test code = 2208) 13 MG/DL CREATININE (test code = 2214) 0.63 MG/DL eGFR (2020 CKD-EPI) (test 109 ML/MIN/1.73 code = 98685) CALC BUN/CREAT (test code = 21 RATIO 2235) SODIUM (test code = 2231) 139 MEQ/L POTASSIUM (test code = 2228) 4.7 MEQ/L CHLORIDE (test code = 2215) 106 MEQ/L CARBON DIOXIDE (test code = 20 MEQ/L 2205) CALCIUM (test code = 2209) 9.1 MG/DL PROTEIN, TOTAL (test code = 7.3 G/DL 2228) ALBUMIN (test code = 2201) 4.3 G/DL CALC GLOBULIN (test code = 3.0 G/DL 0) CALC A/G RATIO (test code = 1.4 RATIO 2233) BILIRUBIN, TOTAL (test code = <0.2 MG/DL 2206) ALKALINE PHOSPHATASE (test 80 U/L code = 2204) AST (test code = 2218) 13 U/L ALT (test code = 2219) 15 U/L VITAMIN B-12 [ADDED]2021-11-05 00:00:00 Test Item Value Reference Range Interpretation Comments VITAMIN B-12 (test code = 2840) 283 PG/ML VITAMIN B-12 [ADDED]2021-11-05 00:00:00 Test Item Value Reference Range Interpretation Comments VITAMIN B-12 (test code = 2840) 283 PG/ML SARS-CoV-2 (COVID-19) by RT-PCR (HIGH RISK)2020-03-27 00:00:00 Test Item Value Reference Range Interpretation Comments SARS-CoV-2 INTERPRETATION NEGATIVE (test code = 65539) SOURCE (test code = 33869) NASOPHARYNGEAL [id number] 00:00:00 Test Item Value Reference Range Interpretation Comments TSH, THIRD GENERATION (test code 3.110 UIU/ML = 2821) [id number] 00:00:00 Test Item Value Reference Range Interpretation Comments TSH, THIRD GENERATION (test code 3.110 UIU/ML = 2821) CBC W/AUTO [id number] 00:00:00 Test Item Value Reference Range Interpretation Comments WBC (test code = 1001) 7.0 K/UL RBC (test code = 1002) 4.71 M/UL HEMOGLOBIN (test code = 1003) 12.6 G/DL HEMATOCRIT (test code = 1004) 37.2 % MCV (test code = 1005) 79.0 fL MCH (test code = 1006) 26.8 PG MCHC (test code = 1007) 33.9 G/DL RDW (test code = 1038) 13.2 % NEUTROPHILS (test code = 1008) 52.7 % LYMPHOCYTES (test code = 1010) 37.4 % MONOCYTES (test code = 1011) 6.1 % EOSINOPHILS (test code = 1012) 3.1 % BASOPHILS (test code = 1013) 0.7 % PLATELET COUNT (test code = 1015) 320 K/UL CBC W/AUTO [id number] 00:00:00 Test Item Value Reference Range Interpretation Comments WBC (test code = 1001) 7.0 K/UL RBC (test code = 1002) 4.71 M/UL HEMOGLOBIN (test code = 1003) 12.6 G/DL HEMATOCRIT (test code = 1004) 37.2 % MCV (test code = 1005) 79.0 fL MCH (test code = 1006) 26.8 PG MCHC (test code = 1007) 33.9 G/DL RDW (test code = 1038) 13.2 % NEUTROPHILS (test code = 1008) 52.7 % LYMPHOCYTES (test code = 1010) 37.4 % MONOCYTES (test code = 1011) 6.1 % EOSINOPHILS (test code = 1012) 3.1 % BASOPHILS (test code = 1013) 0.7 % PLATELET COUNT (test code = 1015) 320 K/UL HEMOGLOBIN [id number] 00:00:00 Test Item Value Reference Range Interpretation Comments HEMOGLOBIN A1c (test code = 85285) 6.1 % HEMOGLOBIN [id number] 00:00:00 Test Item Value Reference Range Interpretation Comments HEMOGLOBIN A1c (test code = 81597) 6.1 % LIPID [id number] 00:00:00 Test Item Value Reference Range Interpretation Comments CHOLESTEROL (test code = 2210) 344 MG/DL TRIGLYCERIDES (test code = 2232) 361 MG/DL HDL CHOLESTEROL (test code = 2220) 55 MG/DL CALC LDL CHOL (test code = 2237) 228 MG/DL RISK RATIO LDL/HDL (test code = 4.15 RATIO 2238) COMPREHENSIVE METABOLIC [id number] 00:00:00 Test Item Value Reference Range Interpretation Comments GLUCOSE (test code = 2217) 82 MG/DL BUN (test code = 2208) 9 MG/DL CREATININE (test code = 2214) 0.57 MG/DL eGFR AMER. (test code 128 ML/MIN/1.73 = 17010) eGFR NON- AMER. (test 110 ML/MIN/1.73 code = 94902) CALC BUN/CREAT (test code = 16 RATIO 2235) SODIUM (test code = 2231) 140 MEQ/L POTASSIUM (test code = 2228) 4.1 MEQ/L CHLORIDE (test code = 2215) 103 MEQ/L CARBON DIOXIDE (test code = 22 MEQ/L 2205) CALCIUM (test code = 2209) 10.0 MG/DL PROTEIN, TOTAL (test code = 7.6 G/DL 2228) ALBUMIN (test code = 2201) 4.5 G/DL CALC GLOBULIN (test code = 3.1 G/DL 2239) CALC A/G RATIO (test code = 1.5 RATIO 2233) BILIRUBIN, TOTAL (test code = 0.3 MG/DL 2206) ALKALINE PHOSPHATASE (test 82 U/L code = 2204) AST (test code = 2218) 15 U/L ALT (test code = 2219) 17 U/L CBC W/AUTO [id number] 00:00:00 Test Item Value Reference Range Interpretation Comments WBC (test code = 1001) 6.3 K/UL RBC (test code = 1002) 5.11 M/UL HEMOGLOBIN (test code = 1003) 12.8 G/DL HEMATOCRIT (test code = 1004) 38.7 % MCV (test code = 1005) 75.7 fL MCH (test code = 1006) 25.0 PG MCHC (test code = 1007) 33.1 G/DL RDW (test code = 1038) 19.5 % NEUTROPHILS (test code = 1008) 55.5 % LYMPHOCYTES (test code = 1010) 29.1 % MONOCYTES (test code = 1011) 8.2 % EOSINOPHILS (test code = 1012) 6.6 % BASOPHILS (test code = 1013) 0.6 % PLATELET COUNT (test code = 1015) 292 K/UL CBC W/AUTO [id number] 00:00:00 Test Item Value Reference Range Interpretation Comments WBC (test code = 1001) 6.3 K/UL RBC (test code = 1002) 5.11 M/UL HEMOGLOBIN (test code = 1003) 12.8 G/DL HEMATOCRIT (test code = 1004) 38.7 % MCV (test code = 1005) 75.7 fL MCH (test code = 1006) 25.0 PG MCHC (test code = 1007) 33.1 G/DL RDW (test code = 1038) 19.5 % NEUTROPHILS (test code = 1008) 55.5 % LYMPHOCYTES (test code = 1010) 29.1 % MONOCYTES (test code = 1011) 8.2 % EOSINOPHILS (test code = 1012) 6.6 % BASOPHILS (test code = 1013) 0.6 % PLATELET COUNT (test code = 1015) 292 K/UL LIPID [id number] 00:00:00 Test Item Value Reference Range Interpretation Comments CHOLESTEROL (test code = 2210) 212 MG/DL TRIGLYCERIDES (test code = 2232) 372 MG/DL HDL CHOLESTEROL (test code = 2220) 46 MG/DL CALC LDL CHOL (test code = 2237) 92 MG/DL RISK RATIO LDL/HDL (test code = 1.99 RATIO 2238) COMPREHENSIVE METABOLIC [id number] 00:00:00 Test Item Value Reference Range Interpretation Comments GLUCOSE (test code = 221) 96 MG/DL BUN (test code = 2208) 9 MG/DL CREATININE (test code = 2214) 0.59 MG/DL eGFR AMER. (test code 127 ML/MIN/1.73 = 08301) eGFR NON- AMER. (test 110 ML/MIN/1.73 code = 21519) CALC BUN/CREAT (test code = 15 RATIO 2235) SODIUM (test code = 2231) 140 MEQ/L POTASSIUM (test code = 2228) 4.9 MEQ/L CHLORIDE (test code = 2215) 101 MEQ/L CARBON DIOXIDE (test code = 26 MEQ/L 2205) CALCIUM (test code = 2209) 9.8 MG/DL PROTEIN, TOTAL (test code = 7.3 G/DL 2228) ALBUMIN (test code = 2201) 4.3 G/DL CALC GLOBULIN (test code = 3.0 G/DL 2240) CALC A/G RATIO (test code = 1.4 RATIO 2234) BILIRUBIN, TOTAL (test code = 0.3 MG/DL 2206) ALKALINE PHOSPHATASE (test 83 U/L code = 2204) AST (test code = 2218) 18 U/L ALT (test code = 2219) 14 U/L IRON BINDING CAPACITY AND IRON AND % [id number] 00:00:00 Test Item Value Reference Range Interpretation Comments IRON, SERUM (test code = 2221) 21 UG/DL UNSATURATED IBC (test code = ) 290 UG/DL CALC TOTAL IBC (test code = 2077) 311 UG/DL CALC % IRON SAT (test code = 2078) 7 % RETICULOCYTE [id number] 00:00:00 Test Item Value Reference Range Interpretation Comments RETICULOCYTE COUNT (test code = 1018) 1.9 % RETICULOCYTE [id number] 00:00:00 Test Item Value Reference Range Interpretation Comments RETICULOCYTE COUNT (test code = 1018) 1.9 % [id number] 00:00:00 Test Item Value Reference Range Interpretation Comments FERRITIN (test code = 2075) 5 NG/ML VITAMIN D, 25 [id number] 00:00:00 Test Item Value Reference Range Interpretation Comments VITAMIN D, 25 OH (test code = 4958) 29 NG/ML CBC W/AUTO [id number] 00:00:00 Test Item Value Reference Range Interpretation Comments WBC (test code = 1001) 6.2 K/UL RBC (test code = 1002) 4.59 M/UL HEMOGLOBIN (test code = 1003) 9.5 G/DL HEMATOCRIT (test code = 1004) 31.8 % MCV (test code = 1005) 69.3 fL MCH (test code = 1006) 20.7 PG MCHC (test code = 1007) 29.9 G/DL RDW (test code = 1038) 15.8 % NEUTROPHILS (test code = 1008) 53.6 % LYMPHOCYTES (test code = 1010) 33.8 % MONOCYTES (test code = 1011) 7.2 % EOSINOPHILS (test code = 1012) 4.8 % BASOPHILS (test code = 1013) 0.6 % PLATELET COUNT (test code = 1015) 331 K/UL CBC W/AUTO [id number] 00:00:00 Test Item Value Reference Range Interpretation Comments WBC (test code = 1001) 6.2 K/UL RBC (test code = 1002) 4.59 M/UL HEMOGLOBIN (test code = 1003) 9.5 G/DL HEMATOCRIT (test code = 1004) 31.8 % MCV (test code = 1005) 69.3 fL MCH (test code = 1006) 20.7 PG MCHC (test code = 1007) 29.9 G/DL RDW (test code = 1038) 15.8 % NEUTROPHILS (test code = 1008) 53.6 % LYMPHOCYTES (test code = 1010) 33.8 % MONOCYTES (test code = 1011) 7.2 % EOSINOPHILS (test code = 1012) 4.8 % BASOPHILS (test code = 1013) 0.6 % PLATELET COUNT (test code = 1015) 331 K/UL LIPID [id number] 00:00:00 Test Item Value Reference Range Interpretation Comments CHOLESTEROL (test code = 2210) 208 MG/DL TRIGLYCERIDES (test code = 2232) 160 MG/DL HDL CHOLESTEROL (test code = 2220) 60 MG/DL CALC LDL CHOL (test code = 2237) 116 MG/DL RISK RATIO LDL/HDL (test code = 1.93 RATIO 2238) HEMOGLOBIN [id number] 00:00:00 Test Item Value Reference Range Interpretation Comments HEMOGLOBIN A1c (test code = 46543) 6.1 % HEMOGLOBIN [id number] 00:00:00 Test Item Value Reference Range Interpretation Comments HEMOGLOBIN A1c (test code = 39240) 6.1 % COMPREHENSIVE METABOLIC [id number] 00:00:00 Test Item Value Reference Range Interpretation Comments GLUCOSE (test code = 2217) 99 MG/DL BUN (test code = 2208) 11 MG/DL CREATININE (test code = 2214) 0.62 MG/DL eGFR AMER. (test code 125 ML/MIN/1.73 = 15935) eGFR NON- AMER. (test 108 ML/MIN/1.73 code = 49433) CALC BUN/CREAT (test code = 18 RATIO 2235) SODIUM (test code = 2231) 140 MEQ/L POTASSIUM (test code = 2228) 4.6 MEQ/L CHLORIDE (test code = 2215) 100 MEQ/L CARBON DIOXIDE (test code = 25 MEQ/L 2205) CALCIUM (test code = 2209) 9.7 MG/DL PROTEIN, TOTAL (test code = 7.1 G/DL 2228) ALBUMIN (test code = 2201) 4.4 G/DL CALC GLOBULIN (test code = 2.7 G/DL 2239) CALC A/G RATIO (test code = 1.6 RATIO 223) BILIRUBIN, TOTAL (test code = 0.3 MG/DL 2206) ALKALINE PHOSPHATASE (test 82 U/L code = 2204) AST (test code = 2218) 17 U/L ALT (test code = 2219) 15 U/L
[2022-06-01] MEDS ORDERED: ONDANSETRON 4 MG/2 ML VIAL ONE (13:06)
[2022-06-01] MEDS ORDERED: MECLIZINE HCL 12.5 MG TAB ONE (13:06)
[2022-06-01 13:39] LABS: Absolute Lymphocytes (CBC) 2.1 K/uL (0.7-4.9); Hematocrit 28.5 % (36.0-45.0); Lymphocytes % 32.8 % (15.3-44.8); MCV 59.9 fL (80-100); MPV 8.6 fL (7.6-11.3); RBC Red Blood Cell Count 4.76 M/uL (3.86-4.86)
[2022-06-01 13:44] LABS: Potassium 3.7 mmol/L (3.5-5.1)
--- NOTE | 2022-06-01 13:56 | RAD REPORT ---
EXAM DESCRIPTION: CT - Head Brain Wo Cont - 06/01/2022 1:39 pm CLINICAL HISTORY: DIZZINESS Headache, drowsiness COMPARISON: Head angio dated 06/01/2022; Neck Angio dated 06/01/2022 TECHNIQUE: All CT scans are performed using dose optimization technique as appropriate and may inclu de automated exposure control or mA/KV adjustment according to patient size. FINDINGS: No intracranial hemorrhage, hydrocephalus or extra-axial fluid collection.3 cm CSF collect ion left temporal lobe anteriorly may represent arachnoid cyst.No areas of brain edema or evidence of midline shift. The paranasal sinuses and mastoids are clear. The calvarium is intact. IMPRESSION: No acute intracranial abnormality. Suspected 3 cm arachnoid cyst left temporal fossa.
--- NOTE | 2022-06-01 13:58 | RAD REPORT ---
EXAM DESCRIPTION: CT - Head angio - 06/01/2022 1:40 pm CLINICAL HISTORY: DIZZINESS Headache, drowsiness COMPARISON: No comparisons TECHNIQUE: CT angiography of the head was performed with MIPs. All CT scans are performed using dose optimization technique as appropriate and may include automated exposure control or mA/KV adjustment according to patient size. FINDINGS: No evidence of aneurysm is detected. No flow-limiting stenosis or vascular malformation id entified. Antegrade flow is seen in the vertebral arteries. The vertebral arteries are codominant. The visualized dural venous sinuses are patent. IMPRESSION: No significant flow abnormality is detected.
--- NOTE | 2022-06-01 14:02 | RAD REPORT ---
EXAM DESCRIPTION: CT - Neck Angio - 06/01/2022 1:40 pm CLINICAL HISTORY: dizziness Headache, drowsiness COMPARISON: Head angio dated 06/01/2022; Head Brain Wo Cont dated 06/01/2022 TECHNIQUE: CT angiography of the neck vessels was performed with MIPs. All CT scans are performed using dose optimization technique as appropriate and may include automated exposure control or mA/KV adjustment according to patient size. FINDINGS: A left aortic arch is identified with normal three vessel configuration of the great vesse ls. No significant flow abnormality is seen of the common carotid bilaterally. Mild mixed plaque is seen proximal right ICA. No significant flow abnormality seen in the carotid sys tems. Normal flow is seen within both vertebral arteries. IMPRESSION: No significant flow abnormality of the neck vessels is identified. Mild mixed plaque proximal right ICA.
[2022-06-01] MEDS ORDERED: Ringers Lactate 1,000 ML IV ONE (14:07)
[2022-06-01 15:41] LABS: Anisocytosis 1+; Blood Morphology Comment NOTED (NOT SEEN); Platelet Estimate ADEQ; White Blood Cell Scan OK (OK)
[2022-06-01 15:42] LABS: Hypochromasia 2+
[2022-06-01] MEDS ORDERED: DIAZEPAM 10 MG/2 ML INJ SYRINGE ONE (17:15)
--- NOTE | 2022-06-01 17:41 | EDPHYS ---
Physician Documentation [facility] Name: Van Hernandez Age: 52 yrs Sex: Female : 1970 Arrival Date: 06/01/2022 Time: 12:34 Bed 19 Private MD: ED Physician Seth Cuevas HPI: 06/01 12:55 This 52 yrs old Female presents to ER via Ambulatory with complaints of Dizziness, Ear jmm Pain. 12:55 The patient presents with dizziness. Onset: The symptoms/episode began/occurred jmm acutely, last night. Modifying factors: The symptoms are alleviated by nothing, the symptoms are aggravated by movement of head, standing up, changing position. Associated signs and symptoms: Pertinent positives: Ear ache. Is a 52-year-old female with history of anemia the presents emerged department with complaints of cute onset dizziness beginning last night along with nausea. Symptoms are worsened with change in position. Patient recently began a course of antibiotics for an ear infection.. Historical: - Allergies: 12:50 PENICILLINS; ap3 - Home Meds: 12:50 Azithromycin Oral [Active]; ap3 - PMHx: 12:50 None; ap3 - Immunization history:: Client reports receiving the 2nd dose of the Covid vaccine, Flu vaccine is not up to date. - Social history:: Smoking status: Patient reports the use of cigarette tobacco products, denies chronic smoking, but will smoke occasionally. ROS: 12:55 Constitutional: Negative for fever, chills, and weight loss. jmm 12:55 Cardiovascular: Negative for chest pain, palpitations, and edema, Respiratory: Negative for shortness of breath, cough, wheezing, and pleuritic chest pain. 12:55 ENT: Positive for ear pain. 12:55 Neuro: Positive for dizziness. 12:55 All other systems are negative. Exam: 12:55 Constitutional: This is a well developed, well nourished patient who is awake, alert, jmm and in no acute distress. Head/Face: atraumatic. 12:55 ENT: Moist Mucus Membranes Neck: Trachea midline, Supple Chest/axilla: Normal chest wall appearance and motion. Cardiovascular: Regular rate and rhythm. No edema appreciated Respiratory: Normal respirations, no respiratory distress appreciated Abdomen/GI: Non distended Back: Normal ROM Skin: General appearance color normal MS/ Extremity: Moves all extremities, no obvious deformities appreciated, no edema noted to the lower extremities Neuro: Awake and alert Psych: Behavior is normal, Mood is normal, Patient is cooperative and pleasant 12:55 Eyes: Extraocular movements: intact throughout, Nystagmus: Horizontal nystagmus noted bilaterally. Vital Signs: 12:47 BP 148 / 81; Pulse 71; Resp 18; Temp 98.4; Pulse Ox 98% ; Weight 91.63 kg; Height 5 ft. ap3 4 in. (162.56 cm); 14:00 BP 149 / 70; Pulse 77; Resp 18; Pulse Ox 98% on R/A; kr3 15:18 BP 138 / 66; Pulse 66; Resp 18; Pulse Ox 99% on R/A; kr3 16:30 BP 135 / 77; Pulse 70; Resp 18; Pulse Ox 96% on R/A; kr3 18:05 BP 109 / 58; Pulse 70; Resp 18; Pulse Ox 97% on R/A; kr3 12:47 Body Mass Index 34.67 (91.63 kg, 162.56 cm) ap3 MDM: 12:55 Patient medically screened. [facility] 17:39 Data reviewed: vital signs, nurses notes. [facility] 18:57 I considered the following discharge prescriptions or medication management in the [facility] emergency department Medications were administered in the Emergency Department. See MAR. Test considered but Not performed: MRI: Physical exam findings and CT imaging studies did not reveal a major vessel occlusion.. Counseling: I had a detailed discussion with the patient and/or guardian regarding: the historical points, exam findings, and any diagnostic results supporting the discharge/admit diagnosis, lab results, radiology results, the need for outpatient follow up, to return to the emergency department if symptoms worsen or persist or if there are any questions or concerns that arise at home. ED course: Cerebellar exam normal. CT negative for major vessel occlusion. I do not currently suspect a central cause of the vertigo. Most likely secondary to otitis media. Patient given second course of antibiotics. Right TM still erythematous and bulging. Patient otherwise advised to follow-up with PCP and otherwise given strict return precautions. Patient understood agrees plan of care.. 06/01 12:56 Order name: Basic Metabolic Panel; Complete Time: 13:49 [facility] 06/01 12:56 Order name: CBC with Diff; Complete Time: 15:44 [facility] 06/01 12:56 Order name: Troponin HS; Complete Time: 13:49 [facility] 06/01 12:56 Order name: CT Head Brain wo Cont; Complete Time: 13:57 [facility] 06/01 15:08 Order name: CREATININE WHOLE BLOOD; Complete Time: 15:20 [facility] 06/01 15:42 Order name: CBC Smear Scan; Complete Time: 15:44 [facility] 06/01 12:56 Order name: EKG; Complete Time: 12:56 [facility] 06/01 12:56 Order name: Cardiac monitoring; Complete Time: 13:51 [facility] 06/01 12:56 Order name: CT Head Angio; Complete Time: 14:00 [facility] 06/01 12:56 Order name: CT Neck Angio; Complete Time: 14:03 [facility] 06/01 12:56 Order name: EKG - Nurse/Tech; Complete Time: 13:51 [facility] 06/01 12:56 Order name: IV Saline Lock; Complete Time: 13:16 [facility] 06/01 12:56 Order name: Labs collected and sent; Complete Time: 13:16 [facility] 06/01 12:56 Order name: O2 Per Protocol; Complete Time: 13:17 [facility] 06/01 12:56 Order name: O2 Sat Monitoring; Complete Time: 13:17 [facility] Administered Medications: 13:10 Drug: Meclizine 50 mg Route: PO; kr3 18:07 Follow up: Response: No adverse reaction kr3 13:51 Drug: Zofran (Ondansetron) 4 mg Route: IVP; Site: right forearm; kr3 18:07 Follow up: Response: No adverse reaction kr3 14:26 Drug: Lactated Ringers Solution 1000 ml Route: IV; Rate: 1000 bolus; Site: right kr3 forearm; 18:06 Follow up: Response: No adverse reaction; IV Status: Completed infusion; IV Intake: kr3 1000ml 17:17 Drug: Valium (diazepam) 2 mg Route: IVP; Site: right forearm; kr3 18:06 Follow up: Response: No adverse reaction; RASS: Drowsy (-1) kr3 Disposition: 18:55 Co-signature as Attending Physician, Seth CLARKE was immediately available on-site ms3 in the Emergency Department for consultation in the care of the patient. Disposition Summary: 06/01/22 17:40 Discharge Ordered Location: Home [facility] Condition: Stable [facility] Diagnosis - Dizziness jmm - Acute serous otitis media, right ear jmm - Vertigo jmm - Anemia, unspecified jmm Followup: [facility] - With: Sonia Gupta MD - When: 2 - 3 days - Reason: Recheck today's complaints, Continuance of care, Re-evaluation by your physician Discharge Instructions: - Discharge Summary Sheet [facility] - Anemia jmm - Otitis Media, Adult [facility] - Vertigo [facility] - How to Perform the Wei Maneuver [facility] Forms: - Medication Reconciliation Form [facility] - Thank You Letter [facility] - Antibiotic Education [facility] - Prescription Opioid Use [facility] Prescriptions: - cefdinir 300 mg Oral capsule - take 1 capsule by ORAL route every 12 hours for 10 days; 20 capsule; Refills: [facility] 0, Product Selection Permitted - Colace 100 mg Oral Tablet - take 1 tablet by ORAL route every 12 hours; 14 tablet; Refills: 0, Product [facility] Selection Permitted - Ferrous Sulfate 325 mg (65 mg Iron) Oral Tablet - take 1 tablet by ORAL route every 8 hours; 90 tablet; Refills: 0, Product [facility] Selection Permitted - Meclizine 25 mg Oral Tablet - take 1 tablet by ORAL route every 8 hours As needed; 30 tablet; Refills: 0, [facility] Product Selection Permitted Signatures: Dispatcher [employer] Sal Perez PA PA jmm Prokisch, Amanda, RN RN ap3 Seth Cuevas DO DO ms3 Maryellen Hinojosa RN RN kr3
--- NOTE | 2022-06-01 17:41 | ER ---
Nurse's Notes [facility] Name: Van Hernandez Age: 52 yrs Sex: Female : 1970 Arrival Date: 06/01/2022 Time: 12:34 Bed 19 Private MD: Diagnosis: Dizziness;Acute serous otitis media, right ear;Vertigo;Anemia, unspecified Presentation: 06/01 12:47 Chief complaint: Patient states: she has been seeing her PCP recently for continued ear ap3 drainage, of which she started a medication for 4 days ago. Patient now complains of dizziness when she bends over, or even just sitting. patient also feels like her legs are shaky along with intermittent blurry vision. Patient states that these symptoms started last night. Coronavirus screen: At this time, the client does not indicate any symptoms associated with coronavirus-19. Ebola Screen: No symptoms or risks identified at this time. Initial Sepsis Screen: Does the patient meet any 2 criteria? No. Patient's initial sepsis screen is negative. Does the patient have a suspected source of infection? No. Patient's initial sepsis screen is negative. Risk Assessment: Do you want to hurt yourself or someone else? Patient reports no desire to harm self or others. Onset of symptoms was May 31, 2022. 12:47 Method Of Arrival: Ambulatory ap3 12:47 Acuity: FABRIZIO 3 ap3 Triage Assessment: 12:51 General: Appears uncomfortable, Behavior is calm, cooperative. General: Reports. Pain: ap3 Complains of pain in head Pain currently is 6 out of 10 on a pain scale. Pain began gradually. EENT: Reports ear drainage . Neuro: Level of Consciousness is awake, alert, obeys commands, Oriented to person, place, time, situation. Cardiovascular: Patient's skin is warm and dry. Respiratory: Airway is patent Respiratory effort is even, unlabored, Respiratory pattern is regular, symmetrical. Historical: - Allergies: 12:50 PENICILLINS; ap3 - Home Meds: 12:50 Azithromycin Oral [Active]; ap3 - PMHx: 12:50 None; ap3 - Immunization history:: Client reports receiving the 2nd dose of the Covid vaccine, Flu vaccine is not up to date. - Social history:: Smoking status: Patient reports the use of cigarette tobacco products, denies chronic smoking, but will smoke occasionally. Screenin:52 Abuse screen: Denies threats or abuse. Nutritional screening: No deficits noted. ap3 Tuberculosis screening: No symptoms or risk factors identified. 18:05 [facility] ED Fall Risk Assessment (Adult) History of falling in the last 3 months, kr3 including since admission No falls in past 3 months (0 pts) Confusion or Disorientation No (0 pts) Intoxicated or Sedated No (0 pts) Impaired Gait No (0 pts) Mobility Assist Device Used No (0 pt) Altered Elimination No (0 pt) Score/Fall Risk Level 0 - 2 = Low Risk. Assessment: 13:53 Reassessment: Patient appears in no apparent distress at this time. Patient and/or kr3 family updated on plan of care and expected duration. Pain level reassessed. Patient is alert, oriented x 3, equal unlabored respirations, skin warm/dry/pink. 13:53 Reassessment: see triage note. kr3 15:18 Reassessment: Patient appears in no apparent distress at this time. Patient and/or kr3 family updated on plan of care and expected duration. Pain level reassessed. Patient is alert, oriented x 3, equal unlabored respirations, skin warm/dry/pink. 16:30 Reassessment: Patient appears in no apparent distress at this time. Patient and/or kr3 family updated on plan of care and expected duration. Pain level reassessed. Patient is alert, oriented x 3, equal unlabored respirations, skin warm/dry/pink. 17:31 Reassessment: Patient appears in no apparent distress at this time. Patient and/or kr3 family updated on plan of care and expected duration. Pain level reassessed. Patient is alert/active/playful, equal unlabored respirations, skin warm/dry/pink. Vital Signs: 12:47 BP 148 / 81; Pulse 71; Resp 18; Temp 98.4; Pulse Ox 98% ; Weight 91.63 kg; Height 5 ft. ap3 4 in. (162.56 cm); 14:00 BP 149 / 70; Pulse 77; Resp 18; Pulse Ox 98% on R/A; kr3 15:18 BP 138 / 66; Pulse 66; Resp 18; Pulse Ox 99% on R/A; kr3 16:30 BP 135 / 77; Pulse 70; Resp 18; Pulse Ox 96% on R/A; kr3 18:05 BP 109 / 58; Pulse 70; Resp 18; Pulse Ox 97% on R/A; kr3 12:47 Body Mass Index 34.67 (91.63 kg, 162.56 cm) ap3 ED Course: 12:34 Patient arrived in ED. am2 12:44 Sal Jacobsen PA is PHCP. jmm 12:44 Seth Cuevas DO is Attending Physician. jmm 12:50 Triage completed. ap3 12:52 Arm band placed on left wrist. ap3 13:00 Maryellen Hinojosa, MALENA is Primary Nurse. kr3 13:00 Bed in low position. Call light in reach. Side rails up X 1. kr3 13:15 Inserted saline lock: 22 gauge in right wrist, using aseptic technique. Blood collected.zm 13:17 Basic Metabolic Panel Sent. zm 13:17 CBC with Diff Sent. zm 13:17 Troponin HS Sent. zm 13:41 CT Head Brain wo Cont In Process Unspecified. EDMS 13:42 CT Head Angio In Process Unspecified. EDMS 13:42 CT Neck Angio In Process Unspecified. EDMS 17:40 Sonia Gupta MD is Referral Physician. jmm 18:04 No provider procedures requiring assistance completed. IV discontinued, intact, kr3 bleeding controlled, No redness/swelling at site. Pressure dressing applied. Administered Medications: 13:10 Drug: Meclizine 50 mg Route: PO; kr3 18:07 Follow up: Response: No adverse reaction kr3 13:51 Drug: Zofran (Ondansetron) 4 mg Route: IVP; Site: right forearm; kr3 18:07 Follow up: Response: No adverse reaction kr3 14:26 Drug: Lactated Ringers Solution 1000 ml Route: IV; Rate: 1000 bolus; Site: right kr3 forearm; 18:06 Follow up: Response: No adverse reaction; IV Status: Completed infusion; IV Intake: kr3 1000ml 17:17 Drug: Valium (diazepam) 2 mg Route: IVP; Site: right forearm; kr3 18:06 Follow up: Response: No adverse reaction; RASS: Drowsy (-1) kr3 Medication: 12:52 VIS not applicable for this client. ap3 Intake: 18:06 IV: 1000ml; Total: 1000ml. kr3 Outcome: 17:40 Discharge ordered by . tanna 18:04 Patient left the ED. kr3 18:04 Discharged to home ambulatory. kr3 18:04 Condition: stable 18:04 Discharge instructions given to patient, Instructed on discharge instructions, follow up and referral plans. medication usage, Demonstrated understanding of instructions, follow-up care, medications, Prescriptions given X 4. Signatures: Dispatcher [employer] EDMS Sal Jacobsen PA PA jmm Moreno, Amanda am2 Monika Kelley RN RN ap3 Naila Mcclelland Kelley, RN RN kr3
[2022-06-01 18:51] VITALS: TEMP 98.4
[2022-06-01 19:03] VITALS: BP 135/77; O2SAT 96
--- NOTE | 2022-06-02 07:56 | EKG ---
Test Date: 2022-06-01 Test Time: 13:48:01 Branch Service Leader: SYDNEY MEASUREMENT RESULTS: Intervals: Rate: 81 ND: 118 QRSD: 80 QT: 368 QTc: 427 [place]: P: -9 ND: 118 QRS: 63 T: 14 INTERPRETIVE STATEMENTS: Normal sinus rhythm Nonspecific T wave abnormality Abnormal ECG No previous ECG available for comparison Electronically Signed On 06-02-22 07:54:22 DRAMATIC READER by Michael Trejo
== END 2022-06-01 18:04 | disposition home or self-care (01) ==
LOC: ER 12:29
DX: H65.01 Acute serous otitis media, right ear (principal); D64.9 Anemia, unspecified; F17.210 Nicotine dependence, cigarettes, uncomplicated; Z88.0 Allergy status to penicillin
CPT/HCPCS: 85025; 80048; 36415; 82565; 84484; 70450; 70496; 70498; Q9967; J8597; J3360; J7120; J2405; 93005